=== PATIENT | male | born 1975 | race Hispanic/Latino ===

== ENCOUNTER 2017-09-16 02:08 | Emergency (ER) | payer BC ==
[2017-09-16 02:15] VITALS: BP 151/88; PULSE 116; RESP 18; TEMP 98; O2SAT 96
--- NOTE | 2017-09-16 02:47 | ED PDOC ---
HPI: Psych/Substance Abuse Time Seen by Provider: 09/16/17 02:11 Chief Complaint (Nursing): Alcohol Ingestion Chief Complaint (Provider): Alcohol ingestion History Per: Patient History/Exam Limitations: no limitations Onset/Duration Of Symptoms: Hrs Current Symptoms Are (Timing): Still Present Modifying Factor(s): Alcohol Additional Complaint(s): The patient is a 42yo male, brought in by EMS for evaluation after patient was discovered asleep in a diner. Patient currently has no medical complaints. Past Medical History Reviewed: Historical Data, Nursing Documentation, Vital Signs Vital Signs: Last Vital Signs Temp 98 F 09/16/17 02:13 Pulse 116 H 09/16/17 02:13 Resp 18 09/16/17 02:13 BP 151/88 H 09/16/17 02:13 Pulse Ox 96 09/16/17 02:13 - Medical History PMH: No Chronic Diseases - Surgical History Surgical History: No Surg Hx - Family History Family History: States: No Known Family Hx - Allergies Allergies/Adverse Reactions: Allergies Allergy/AdvReac Type Severity Reaction Status Date / Time No Known Allergies Allergy Verified 09/16/17 02:12 Review of Systems ROS Statement: Except As Marked, All Systems Reviewed And Found Negative Constitutional: Positive for: Other (alcohol use) Physical Exam - Reviewed Nursing Documentation Reviewed: Yes Vital Signs Reviewed: Yes - Physical Exam Appears: Positive for: Non-toxic, No Acute Distress Skin: Positive for: Normal Color Eye Exam: Positive for: Normal appearance Neck: Positive for: Supple Cardiovascular/Chest: Positive for: Regular Rate, Rhythm Respiratory: Positive for: Normal Breath Sounds. Negative for: Respiratory Distress Neurologic/Psych: Positive for: Alert, Oriented, Mood/Affect (slurred speech), Gait (steady) - ECG O2 Sat by Pulse Oximetry: 96 (RA) Medical Decision Making Medical Decision Making: Time: 225 Impression: Alcohol use Plan: -- Alcohol serum -- Accucheck Reassess Time: 606 Patient awake, alert and oriented x 3. Patient with steady gait. Stable for discharge home. Scribe Attestation: Documented by Edith Carreno acting as a scribe for Aman Tenorio MD. Provider Attestation: All medical record entries made by the Scribe were at my direction and personally dictated by me. I have reviewed the chart and agree that the record accurately reflects my personal performance of the history, physical exam, medical decision making, and the department course for this patient. I have also personally directed, reviewed, and agree with the discharge instructions and disposition. Disposition - Clinical Impression Clinical Impression: Alcohol abuse with intoxication - Disposition Disposition: Routine/Home Disposition Time: 06:07 Condition: STABLE Instructions: Alcohol Intoxication (ED) Forms: [employer] (Slovak)
== END 2017-09-16 06:23 | disposition home or self-care (01) ==
LOC: H.ER 02:08
DX: F10.129 Alcohol abuse with intoxication, unspecified (principal)
CPT/HCPCS: 82948; 99283; G0480